=== PATIENT | male | born 1955 | race Native Hawaiian/Other Pacific Islander ===

== ENCOUNTER 2021-02-09 11:31 | Inpatient (IN) | payer MEDICARE ==
[2021-02-09] VITALS (9 sets, daily range): BP systolic 116–150; BP diastolic 69–111
[~2021-02-09 11:31] MED LIST: CARVEDILOL6.25 MG PO; CLONAZEP ODT0.5 MG PO; LISINOPRIL20 M1 PO; SERTRALINE25 MG PO
[2021-02-09 12:29] LABS: HEMATOCRIT 50.3 % (39.0-50.0); HEMOGLOBIN 16.8 g/dl (14.0-18.0); IMMATURE GRANULOCYTES 0.1 % (0.0-5.0); MEAN CELL VOLUME 95.3 fL CALC (80.0-100.0); MEAN CORPUSCULAR HGB 31.8 pG CALC (26.0-32.0); MEAN CORPUSCULAR HGB CONC 33.4 g/dL CAL (32.0-36.0); NEUT# 4.48 thou/uL (1.82-7.42); RED BLOOD COUNT 5.28 mill/uL (4.70-6.10); RED CELL DISTRI WIDTH 13.4 % (11.5-15.5)
[2021-02-09 12:39] LABS: ALBUMIN 4.8 g/dL (3.2-5.0); ALKALINE PHOSPHATASE 136 u/l (38-126); ANION GAP 28 (6-22 (CALC)); BILIRUBIN, TOTAL 1.5 mg/dL (0.0-1.4); BUN 15 mg/dL (8-23); BUN/CREATININE RATIO 16 (12-20 (CALC)); CARBON DIOXIDE 16 mmol/l (22-30); CHLORIDE 96 mmol/l (95-108); CREATININE 0.9 mg/dL (0.7-1.3); GFR > 60 ML/MIN (>=60 (CALC)); GFR FOR AFR.AMER. > 60 ML/MIN (>=60 (CALC)); POTASSIUM 4.6 mmol/l (3.5-5.1); SGOT/AST 108 u/l (19-48); SODIUM 135 mmol/l (137-146); TOTAL PROTEIN 8.4 g/dL (6.3-8.2)
[2021-02-09] MEDS ORDERED: CLONAZEPAM1 MG PO (13:04)
[2021-02-09] MEDS ORDERED: SEROQUEL25 MG PO (13:04)
[2021-02-09 15:54] LABS: URINE BLOOD DIPSTICK NEGATIVE (NEGATIVE); URINE GLUCOSE - DIPSTICK NEGATIVE (NEGATIVE); URINE KETONE 40 mg/dL (NEGATIVE); URINE LEUK ESTERASE NEGATIVE (NEGATIVE); URINE PH 5.5 (4.5-8.0); URINE PROTEIN - DIPSTICK 30 mg/dL (NEG-TRACE); URINE SPECIFIC GRAVITY >=1.030
[2021-02-09 16:01] LABS: URINE BILIRUBIN - DIPSTICK SMALL (NEGATIVE); URINE COLOR DK. YELLOW; URINE NITRITE - DIPSTICK NEGATIVE (Negative)
[2021-02-09 16:02] LABS: URINE RBC 0-2 RBC/hpf (0-5); URINE WBC 0-2 WBC/hpf (0-5)
[2021-02-10] VITALS (21 sets, daily range): BP systolic 100–156; BP diastolic 63–104
[2021-02-10 06:37] LABS: HEMATOCRIT 45.1 % (39.0-50.0); MEAN CELL VOLUME 96.8 fL CALC (80.0-100.0); MEAN CORPUSCULAR HGB 31.8 pG CALC (26.0-32.0); MEAN CORPUSCULAR HGB CONC 32.8 g/dL CAL (32.0-36.0); RED BLOOD COUNT 4.66 mill/uL (4.70-6.10); RED CELL DISTRI WIDTH 13.8 % (11.5-15.5)
[2021-02-10 06:48] LABS: HEMOGLOBIN 14.8 g/dl (14.0-18.0)
[2021-02-10 07:01] LABS: ALKALINE PHOSPHATASE 105 u/l (38-126); ANION GAP 14 (6-22 (CALC)); BILIRUBIN, TOTAL 1.4 mg/dL (0.0-1.4); BUN 23 mg/dL (8-23); BUN/CREATININE RATIO 26 (12-20 (CALC)); CALCULATED LDLCHOLESTEROL 94 mg/dL (62-129 (CALC)); CARBON DIOXIDE 29 mmol/l (22-30); CHLORIDE 95 mmol/l (95-108); CHOLESTEROL HDL RATIO 2.2 (<4.4 (CALC)); CREATININE 0.9 mg/dL (0.7-1.3); GFR > 60 ML/MIN (>=60 (CALC)); GFR FOR AFR.AMER. > 60 ML/MIN (>=60 (CALC)); HDL CHOLESTEROL 91 mg/dL (>=40); MAGNESIUM 2.4 mg/dL (1.6-2.3); POTASSIUM 4.3 mmol/l (3.5-5.1); SGOT/AST 61 u/l (19-48); SODIUM 134 mmol/l (137-146); TOTAL CHOLESTEROL 203 mg/dl (0-199); TOTAL PROTEIN 6.8 g/dL (6.3-8.2); TOTAL TRIGLYCERIDES 92 mg/dl (30-149); VLDL CHOLESTROL 18 mg/dl (4-45 (CALC))
[2021-02-11] VITALS (18 sets, daily range): BP systolic 92–158; BP diastolic 54–90
[2021-02-11 05:54] LABS: ALBUMIN 3.7 g/dL (3.2-5.0); ALKALINE PHOSPHATASE 95 u/l (38-126); ANION GAP 12 (6-22 (CALC)); BUN 23 mg/dL (8-23); BUN/CREATININE RATIO 29 (12-20 (CALC)); CARBON DIOXIDE 31 mmol/l (22-30); CHLORIDE 96 mmol/l (95-108); CREATININE 0.8 mg/dL (0.7-1.3); DIGOXIN 0.9 ng/mL (0.8-2.0); GFR > 60 ML/MIN (>=60 (CALC)); GFR FOR AFR.AMER. > 60 ML/MIN (>=60 (CALC)); POTASSIUM 4.1 mmol/l (3.5-5.1); SGOT/AST 45 u/l (19-48); SODIUM 135 mmol/l (137-146); TOTAL PROTEIN 6.7 g/dL (6.3-8.2)
[2021-02-12] VITALS (9 sets, daily range): BP systolic 93–148; BP diastolic 70–95
[2021-02-12 06:15] LABS: ALBUMIN 3.3 g/dL (3.2-5.0); ALKALINE PHOSPHATASE 78 u/l (38-126); ANION GAP 11 (6-22 (CALC)); BUN 19 mg/dL (8-23); BUN/CREATININE RATIO 26 (12-20 (CALC)); CARBON DIOXIDE 28 mmol/l (22-30); CHLORIDE 98 mmol/l (95-108); CREATININE 0.7 mg/dL (0.7-1.3); GFR > 60 ML/MIN (>=60 (CALC)); GFR FOR AFR.AMER. > 60 ML/MIN (>=60 (CALC)); POTASSIUM 3.8 mmol/l (3.5-5.1); SGOT/AST 49 u/l (19-48); SODIUM 133 mmol/l (137-146); TOTAL PROTEIN 6.1 g/dL (6.3-8.2)
[2021-02-12 06:39] LABS: DIGOXIN 0.5 ng/mL (0.8-2.0)
[2021-02-13] VITALS: BP 107/73
[2021-02-13 05:06] VITALS: BP 146/86
[2021-02-13 07:00] VITALS: BP 114/74
[2021-02-13] MEDS ORDERED: COREG12.5 MG PO (10:33)
[2021-02-13] MEDS ORDERED: CORDARONE/200 MG/TAB PO (10:33)
[2021-02-13] MEDS ORDERED: ELIQUIS5 MG PO (10:33)
[2021-02-13 13:00] VITALS: BP 126/87
== END 2021-02-13 14:20 | disposition home or self-care (01) | DRG 310 ==
LOC: ED 11:31 → ED-I 16:08 → ED 16:26 → ICU 16:27
PROVIDERS: Family Medicine; Nurse Practitioner Family; ADMIT Internal Medicine; ATTEND Internal Medicine
DX: I48.92 Unspecified atrial flutter (principal); I10 Essential (primary) hypertension; F41.9 Anxiety disorder, unspecified; G25.0 Essential tremor; R79.89 Other specified abnormal findings of blood chemistry; R94.6 Abnormal results of thyroid function studies; Z63.8 Other specified problems related to primary support group; Z20.822 Contact with and (suspected) exposure to COVID-19
CPT/HCPCS: J0282; J1160; J1650; J2060; J3475; Q9967

== ENCOUNTER 2022-07-27 05:23 | Emergency (ER) | payer MEDICARE ==
[2022-07-27] VITALS (9 sets, daily range): BP systolic 106–139; BP diastolic 74–90
[~2022-07-27] VITALS: Ht 185.4 cm; Wt 114.0 kg
[~2022-07-27 05:23] MED LIST changes: +CLONAZEPAM1 MG PO; +CORDARONE/200 MG/TAB PO; +COREG12.5 MG PO; +ELIQUIS5 MG PO; +SEROQUEL25 MG PO
[2022-07-27] MEDS ORDERED: CARVEDILOL6.25 MG PO (05:46)
[2022-07-27] MEDS ORDERED: LISINOPRIL10 MG PO (05:47)
[2022-07-27 06:01] LABS: HEMATOCRIT 46.3 % (39.0-50.0); HEMOGLOBIN 15.2 g/dl (14.0-18.0); IMMATURE GRANULOCYTES 0.2 % (0.0-5.0); MEAN CELL VOLUME 95.9 fL CALC (80.0-100.0); MEAN CORPUSCULAR HGB 31.5 pG CALC (26.0-32.0); MEAN CORPUSCULAR HGB CONC 32.8 g/dL CAL (32.0-36.0); NEUT# 5.51 thou/uL (1.82-7.42); RED BLOOD COUNT 4.83 mill/uL (4.70-6.10)
[2022-07-27 06:12] LABS: ALBUMIN 4.4 g/dL (3.2-5.0); ANION GAP 16 (6-22 (CALC)); BUN 9 mg/dL (8-23); BUN/CREATININE RATIO 12 (12-20 (CALC)); CARBON DIOXIDE 25 mmol/l (22-30); CHLORIDE 104 mmol/l (95-108); CREATININE 0.8 mg/dL (0.7-1.3); GFR FOR AFR.AMER. > 60 ML/MIN (>=60 (CALC)); GFR OTHER RACES > 60 ML/MIN (>=60 (CALC)); POTASSIUM 4.3 mmol/l (3.5-5.1); SGOT/AST 31 u/l (19-48); SODIUM 141 mmol/l (137-146); TOTAL PROTEIN 7.8 g/dL (6.3-8.2)
[2022-07-27 06:13] LABS: ALKALINE PHOSPHATASE 116 u/l (38-126); BILIRUBIN, TOTAL 0.4 mg/dL (0.0-1.4)
[2022-07-27 06:42] LABS: URINE BILIRUBIN - DIPSTICK NEGATIVE (NEGATIVE); URINE BLOOD DIPSTICK NEGATIVE (NEGATIVE); URINE COLOR YELLOW; URINE GLUCOSE - DIPSTICK NEGATIVE (NEGATIVE); URINE KETONE TRACE mg/dL (NEGATIVE); URINE LEUK ESTERASE NEGATIVE (NEGATIVE); URINE PROTEIN - DIPSTICK NEGATIVE (NEG-TRACE); URINE SPECIFIC GRAVITY >=1.030; URINE UROBILINOGEN - DIPSTICK 0.2 E.U./dL (0.2)
[2022-07-27 06:45] LABS: URINE NITRITE - DIPSTICK NEGATIVE (Negative)
== END 2022-07-27 07:03 | disposition home or self-care (01) ==
LOC: ED 05:23
PROVIDERS: Emergency Medicine
DX: F19.239 Other psychoactive substance dependence with withdrawal, unspecified (principal); F41.9 Anxiety disorder, unspecified; I48.92 Unspecified atrial flutter; I10 Essential (primary) hypertension; I48.91 Unspecified atrial fibrillation; F32.A Depression, unspecified; T42.4X6A Underdosing of benzodiazepines, initial encounter; Z91.128 Patient's intentional underdosing of medication regimen for other reason

== ENCOUNTER 2022-09-17 16:46 | Emergency (ER) | payer MEDICARE ==
[2022-09-17] VITALS (8 sets, daily range): BP systolic 85–121; BP diastolic 61–95
[~2022-09-17] VITALS: Ht 185.4 cm; Wt 106.8 kg
[~2022-09-17 16:46] MED LIST changes: +LISINOPRIL10 MG PO
[2022-09-17 17:30] LABS: GFR FOR AFR.AMER. > 60 ML/MIN (>=60 (CALC)); GFR OTHER RACES > 60 ML/MIN (>=60 (CALC))
[2022-09-17 17:37] LABS: ALBUMIN 4.2 g/dL (3.2-5.0); ANION GAP 13 (6-22 (CALC)); BUN 10 mg/dL (8-23); BUN/CREATININE RATIO 11 (12-20 (CALC)); CARBON DIOXIDE 25 mmol/l (22-30); CHLORIDE 109 mmol/l (95-108); CREATININE 0.9 mg/dL (0.7-1.3); GFR FOR AFR.AMER. > 60 ML/MIN (>=60 (CALC)); GFR OTHER RACES > 60 ML/MIN (>=60 (CALC)); HEMOGLOBIN 14.8 g/dl (14.0-18.0); IMMATURE GRANULOCYTES 0.1 % (0.0-5.0); LIPASE 55 u/l (23-300); MEAN CELL VOLUME 97.6 fL CALC (80.0-100.0); MEAN CORPUSCULAR HGB 32.1 pG CALC (26.0-32.0); MEAN CORPUSCULAR HGB CONC 32.9 g/dL CAL (32.0-36.0); NEUT# 4.07 thou/uL (1.82-7.42); RED BLOOD COUNT 4.61 mill/uL (4.70-6.10); SODIUM 143 mmol/l (137-146); TOTAL PROTEIN 7.7 g/dL (6.3-8.2)
[2022-09-17 17:41] LABS: ALKALINE PHOSPHATASE 233 u/l (38-126); BILIRUBIN, TOTAL 0.7 mg/dL (0.0-1.4); SGOT/AST 68 u/l (19-48)
[2022-09-17] MEDS ORDERED: TRAMADOL HCL50 MG PO (19:21)
== END 2022-09-17 20:17 | disposition home or self-care (01) ==
LOC: ED 16:46
PROVIDERS: Family Medicine
DX: S22.41XA Multiple fractures of ribs, right side, initial encounter for closed fracture (principal); I48.92 Unspecified atrial flutter; R42 Dizziness and giddiness; I10 Essential (primary) hypertension; I48.91 Unspecified atrial fibrillation; F41.9 Anxiety disorder, unspecified; F32.A Depression, unspecified; V48.4XXA Person boarding or alighting a car injured in noncollision transport accident, initial encounter; Y92.009 Unspecified place in unspecified non-institutional (private) residence as the place of occurrence of the external cause
CPT/HCPCS: Q9967

== ENCOUNTER 2022-10-31 10:59 | Emergency (ER) | payer OTHER, MEDICARE ==
[~2022-10-31] VITALS: Ht 185.4 cm; Wt 105.0 kg
[2022-10-31] VITALS (35 sets, daily range): BP systolic 109–153; BP diastolic 64–115
[~2022-10-31 10:59] MED LIST changes: +TRAMADOL HCL50 MG PO
[2022-10-31] MEDS ORDERED: ANTIDEPRESSENT (11:24)
[2022-10-31] MEDS ORDERED: LISINOPRIL2.5 MG PO (11:24)
[2022-10-31 11:38] LABS: BASO% 0.4 % (0-3); EOS% 0.2 % (0-8); HEMATOCRIT 42.3 % (39.0-50.0); HEMOGLOBIN 14.6 g/dl (14.0-18.0); IMMATURE GRANULOCYTES 0.1 % (0.0-5.0); LYMPH% 31.1 % (15-41); MEAN CORPUSCULAR HGB 33.5 pG CALC (26.0-32.0); MEAN CORPUSCULAR HGB CONC 34.5 g/dL CAL (32.0-36.0); MONO% 9.8 % (2-13); NEUT# 6.83 thou/uL (1.82-7.42); NEUT% 58.4 % (42-76); RED BLOOD COUNT 4.36 mill/uL (4.70-6.10); RED CELL DISTRI WIDTH 13.3 % (11.5-15.5)
[2022-10-31 11:53] LABS: ALBUMIN 4.1 g/dL (3.2-5.0); ALKALINE PHOSPHATASE 146 u/l (38-126); ANION GAP 16 (6-22 (CALC)); BILIRUBIN, TOTAL 0.7 mg/dL (0.0-1.4); BUN 9 mg/dL (8-23); BUN/CREATININE RATIO 10 (12-20 (CALC)); CARBON DIOXIDE 22 mmol/l (22-30); CHLORIDE 104 mmol/l (95-108); CREATININE 0.9 mg/dL (0.7-1.3); ETHYL ALCOHOL 227 mg/dl (0-30); GFR FOR AFR.AMER. > 60 ML/MIN (>=60 (CALC)); GFR OTHER RACES > 60 ML/MIN (>=60 (CALC)); POTASSIUM 4.2 mmol/l (3.5-5.1); SGOT/AST 80 u/l (19-48); SODIUM 138 mmol/l (137-146); TOTAL PROTEIN 7.5 g/dL (6.3-8.2)
== END 2022-10-31 20:26 | disposition left against medical advice (07) | DRG 605 ==
LOC: ED 10:59
PROVIDERS: Family Medicine
DX: S00.83XA Contusion of other part of head, initial encounter (principal); I48.92 Unspecified atrial flutter; V43.52XA Car driver injured in collision with other type car in traffic accident, initial encounter; Y92.481 Parking lot as the place of occurrence of the external cause; F10.129 Alcohol abuse with intoxication, unspecified; Y90.7 Blood alcohol level of 200-239 mg/100 ml; Z53.29 Procedure and treatment not carried out because of patient's decision for other reasons; R00.0 Tachycardia, unspecified
CPT/HCPCS: Q9967

== ENCOUNTER 2022-11-09 11:11 | Emergency (ER) | payer MEDICARE ==
[~2022-11-09] VITALS: Ht 185.4 cm; Wt 120.0 kg
[2022-11-09] VITALS (21 sets, daily range): BP systolic 122–153; BP diastolic 66–105
[~2022-11-09 11:11] MED LIST changes: +ANTIDEPRESSENT; +LISINOPRIL2.5 MG PO
[2022-11-09 12:15] LABS: BASO% 0.8 % (0-3); EOS% 0.5 % (0-8); HEMATOCRIT 44.5 % (39.0-50.0); HEMOGLOBIN 15.2 g/dl (14.0-18.0); IMMATURE GRANULOCYTES 0.2 % (0.0-5.0); LYMPH% 25.1 % (15-41); MEAN CELL VOLUME 98.9 fL CALC (80.0-100.0); MEAN CORPUSCULAR HGB 33.8 pG CALC (26.0-32.0); MEAN CORPUSCULAR HGB CONC 34.2 g/dL CAL (32.0-36.0); MONO% 9.3 % (2-13); NEUT# 5.91 thou/uL (1.82-7.42); NEUT% 64.1 % (42-76); RED BLOOD COUNT 4.5 mill/uL (4.70-6.10); RED CELL DISTRI WIDTH 13.3 % (11.5-15.5)
[2022-11-09 12:34] LABS: ALBUMIN 4.5 g/dL (3.2-5.0); ALKALINE PHOSPHATASE 150 u/l (38-126); ANION GAP 16 (6-22 (CALC)); BILIRUBIN, TOTAL 0.9 mg/dL (0.0-1.4); BUN 13 mg/dL (8-23); BUN/CREATININE RATIO 17 (12-20 (CALC)); CARBON DIOXIDE 25 mmol/l (22-30); CHLORIDE 105 mmol/l (95-108); CREATININE 0.8 mg/dL (0.7-1.3); GFR FOR AFR.AMER. > 60 ML/MIN (>=60 (CALC)); GFR OTHER RACES > 60 ML/MIN (>=60 (CALC)); POTASSIUM 4.4 mmol/l (3.5-5.1); SGOT/AST 111 u/l (19-48); SODIUM 142 mmol/l (137-146); TOTAL PROTEIN 8.2 g/dL (6.3-8.2)
== END 2022-11-09 13:40 | disposition left against medical advice (07) ==
LOC: ED 11:11
PROVIDERS: Family Medicine
DX: I48.92 Unspecified atrial flutter (principal); I10 Essential (primary) hypertension; I48.91 Unspecified atrial fibrillation; F32.A Depression, unspecified; F41.9 Anxiety disorder, unspecified; Z53.29 Procedure and treatment not carried out because of patient's decision for other reasons; Z20.822 Contact with and (suspected) exposure to COVID-19

== ENCOUNTER 2023-02-18 15:32 | Observation (INO) | payer MEDICARE ==
[~2023-02-18] VITALS: Ht 188 cm; Wt 113.2 kg
[~2023-02-18 15:32] MED LIST changes: +AMIODARONE HYD200 M1 PO; +CLONAZEPAM2 MG PO; +PROTONIX40 M2 PO; +QUETIAPINE FUMA50 MG PO; +SERTRALINE50 MG PO; +SILDENAFIL50 M1; +XARELTO10 MG PO; +XYZAL ALLERGY 245 MG
[2023-02-18 15:45] VITALS: BP 131/81
[2023-02-18 16:00] VITALS: BP 126/82
[2023-02-18 16:15] VITALS: BP 135/88
[2023-02-18 16:15] LABS: EOS% 1.3 % (0-8); IMMATURE GRANULOCYTES 0.2 % (0.0-5.0); LYMPH% 25.3 % (15-41); MEAN CORPUSCULAR HGB CONC 30.8 g/dL CAL (32.0-36.0); MONO% 9.6 % (2-13); NEUT# 3.92 thou/uL (1.82-7.42); NEUT% 62.6 % (42-76); RED BLOOD COUNT 4.86 mill/uL (4.70-6.10); RED CELL DISTRI WIDTH 13.5 % (11.5-15.5)
[2023-02-18 16:21] LABS: HEMATOCRIT 44.2 % (39.0-50.0); HEMOGLOBIN 13.6 g/dl (14.0-18.0); MEAN CELL VOLUME 90.9 fL CALC (80.0-100.0)
[2023-02-18 16:34] LABS: ANION GAP 16 (6-22 (CALC)); BUN 11 mg/dL (8-23); BUN/CREATININE RATIO 14 (12-20 (CALC)); CARBON DIOXIDE 23 mmol/l (22-30); CHLORIDE 108 mmol/l (95-108); CREATININE 0.8 mg/dL (0.7-1.3); GFR FOR AFR.AMER. > 60 ML/MIN (>=60 (CALC)); GFR OTHER RACES > 60 ML/MIN (>=60 (CALC)); POTASSIUM 4.2 mmol/l (3.5-5.1); SODIUM 142 mmol/l (137-146)
[2023-02-18 16:36] LABS: BILIRUBIN, TOTAL 0.3 mg/dL (0.2-1.3); TOTAL PROTEIN 7.1 g/dL (6.3-8.2)
[2023-02-18 16:37] LABS: ALBUMIN 3.6 g/dL (3.2-5.0); ALKALINE PHOSPHATASE 161 u/l (38-126); SGOT/AST 46 u/l (19-48)
[2023-02-18 17:57] LABS: URINE BILIRUBIN - DIPSTICK NEGATIVE (NEGATIVE); URINE BLOOD DIPSTICK NEGATIVE (NEGATIVE); URINE COLOR YELLOW; URINE GLUCOSE - DIPSTICK NEGATIVE (NEGATIVE); URINE KETONE 15 mg/dL (NEGATIVE); URINE LEUK ESTERASE NEGATIVE (NEGATIVE); URINE PH 5.5 (4.5-8.0); URINE PROTEIN - DIPSTICK NEGATIVE (NEG-TRACE); URINE SPECIFIC GRAVITY >=1.030; URINE UROBILINOGEN - DIPSTICK 0.2 E.U./dL (0.2)
[2023-02-18 17:58] LABS: URINE NITRITE - DIPSTICK NEGATIVE (Negative)
[2023-02-19] VITALS (14 sets, daily range): BP systolic 141–155; BP diastolic 93–105
[2023-02-19 05:37] LABS: BASO% 0.9 % (0-3); EOS% 1.4 % (0-8); HEMATOCRIT 41.3 % (39.0-50.0); HEMOGLOBIN 12.5 g/dl (14.0-18.0); IMMATURE GRANULOCYTES 0.2 % (0.0-5.0); LYMPH% 30.1 % (15-41); MEAN CELL VOLUME 91.8 fL CALC (80.0-100.0); MEAN CORPUSCULAR HGB 27.8 pG CALC (26.0-32.0); MEAN CORPUSCULAR HGB CONC 30.3 g/dL CAL (32.0-36.0); MONO% 13.4 % (2-13); NEUT# 3.52 thou/uL (1.82-7.42); RED BLOOD COUNT 4.5 mill/uL (4.70-6.10); RED CELL DISTRI WIDTH 13.6 % (11.5-15.5)
[2023-02-19 05:52] LABS: ALBUMIN 3.1 g/dL (3.2-5.0); ALKALINE PHOSPHATASE 135 u/l (38-126); ANION GAP 13 (6-22 (CALC)); BUN 11 mg/dL (8-23); BUN/CREATININE RATIO 17 (12-20 (CALC)); CARBON DIOXIDE 21 mmol/l (22-30); CHLORIDE 109 mmol/l (95-108); CREATININE 0.7 mg/dL (0.7-1.3); GFR FOR AFR.AMER. > 60 ML/MIN (>=60 (CALC)); GFR OTHER RACES > 60 ML/MIN (>=60 (CALC)); MAGNESIUM 1.6 mg/dL (1.6-2.3); POTASSIUM 4.2 mmol/l (3.5-5.1); SGOT/AST 32 u/l (19-48); SODIUM 140 mmol/l (137-146); TOTAL PROTEIN 6.2 g/dL (6.3-8.2)
[2023-02-19 05:53] LABS: BILIRUBIN, TOTAL 0.5 mg/dL (0.2-1.3)
[2023-02-20 03:18] VITALS: BP 136/100; BP 138/100
[2023-02-20 06:39] VITALS: BP 138/96
[2023-02-20 09:01] VITALS: BP 142/97
[2023-02-20 09:05] VITALS: BP 142/97
[2023-02-20 10:11] LABS: HEMATOCRIT 41.3 % (39.0-50.0); HEMOGLOBIN 12.7 g/dl (14.0-18.0); MEAN CORPUSCULAR HGB 27.7 pG CALC (26.0-32.0); MEAN CORPUSCULAR HGB CONC 30.8 g/dL CAL (32.0-36.0); RED BLOOD COUNT 4.59 mill/uL (4.70-6.10); RED CELL DISTRI WIDTH 13.6 % (11.5-15.5)
[2023-02-20 10:27] LABS: ALBUMIN 3.1 g/dL (3.2-5.0); ALKALINE PHOSPHATASE 132 u/l (38-126); ANION GAP 10 (6-22 (CALC)); BILIRUBIN, TOTAL 0.5 mg/dL (0.2-1.3); BUN 10 mg/dL (8-23); BUN/CREATININE RATIO 15 (12-20 (CALC)); CARBON DIOXIDE 25 mmol/l (22-30); CHLORIDE 106 mmol/l (95-108); CREATININE 0.7 mg/dL (0.7-1.3); GFR FOR AFR.AMER. > 60 ML/MIN (>=60 (CALC)); GFR OTHER RACES > 60 ML/MIN (>=60 (CALC)); MAGNESIUM 1.7 mg/dL (1.6-2.3); POTASSIUM 3.5 mmol/l (3.5-5.1); SGOT/AST 28 u/l (19-48); SODIUM 138 mmol/l (137-146); TOTAL PROTEIN 6.4 g/dL (6.3-8.2)
== END 2023-02-20 12:56 ==
LOC: ED 15:32 → ED-I 16:11 → ED 18:51 → MS2 18:52
PROVIDERS: Family Medicine; Nurse Practitioner Family; ADMIT Internal Medicine; ATTEND Internal Medicine
DX: R55 Syncope and collapse (principal); R42 Dizziness and giddiness; E87.20 Acidosis, unspecified; I10 Essential (primary) hypertension; I48.92 Unspecified atrial flutter; I48.0 Paroxysmal atrial fibrillation; F41.9 Anxiety disorder, unspecified; F32.A Depression, unspecified; S32.010A Wedge compression fracture of first lumbar vertebra, initial encounter for closed fracture; S80.211A Abrasion, right knee, initial encounter; S00.11XA Contusion of right eyelid and periocular area, initial encounter; W19.XXXA Unspecified fall, initial encounter; Z73.3 Stress, not elsewhere classified; Z91.81 History of falling; Z79.899 Other long term (current) drug therapy; Z87.19 Personal history of other diseases of the digestive system; Z20.822 Contact with and (suspected) exposure to COVID-19

== ENCOUNTER 2023-06-11 11:08 | Inpatient (IN) | payer MEDICARE ==
[~2023-06-11] VITALS: Ht 188 cm; Wt 94.5 kg
[2023-06-11] VITALS (33 sets, daily range): BP systolic 75–121; BP diastolic 52–87
[~2023-06-11 11:08] MED LIST changes: +ACETAMINOPHEN325 MG PO; +CARTIA XT180 MG; +CARVEDILOL12.5 MG PO; +FLEXERIL5 M1 PO; +KLONOPIN1 MG PO; +MONTELUKAST SOD10 MG PO; +MUPIROCIN2 % EX; +PANTOPRAZOLE SO40 M1 PO; +SLOW-MAG PO
--- NOTE | 2023-06-11 11:10 | NUR ---
Patient to ED 13 via EMS. From [facility], recently d/c from [facility], reports continued and progressive weakness over the past 2 weeks and diarrhea over the past 2-3 days.
[2023-06-11] MEDS ORDERED: DILT-XR120 MG PO (11:39)
--- NOTE | 2023-06-11 12:15 | NUR ---
Patient resting in bed with eyes closed. Arousable and offers no new complaints. Continuous monitoring in place.
--- NOTE | 2023-06-11 12:30 | NUR ---
Orders to hold IV Diltiazem for hypotension.
[2023-06-11 12:56] LABS: BASO% 0.4 % (0-3); IMMATURE GRANULOCYTES 0.1 % (0.0-5.0); LYMPH% 25.4 % (15-41); MEAN CELL VOLUME 89.6 fL CALC (80.0-100.0); MEAN CORPUSCULAR HGB 28.1 pG CALC (26.0-32.0); MEAN CORPUSCULAR HGB CONC 31.3 g/dL CAL (32.0-36.0); MONO% 9.2 % (2-13); NEUT# 5.15 thou/uL (1.82-7.42); NEUT% 64.9 % (42-76); RED BLOOD COUNT 5.41 mill/uL (4.70-6.10); RED CELL DISTRI WIDTH 15.3 % (11.5-15.5)
[2023-06-11 12:57] LABS: HEMATOCRIT 48.5 % (39.0-50.0); HEMOGLOBIN 15.2 g/dl (14.0-18.0)
[2023-06-11 13:03] LABS: ALBUMIN 3.6 g/dL (3.2-5.0); ALKALINE PHOSPHATASE 117 u/l (38-126); ANION GAP 14 (6-22 (CALC)); BUN 13 mg/dL (8-23); BUN/CREATININE RATIO 15 (12-20 (CALC)); CARBON DIOXIDE 24 mmol/l (22-30); CHLORIDE 102 mmol/l (95-108); CREATININE 0.8 mg/dL (0.7-1.3); GFR FOR AFR.AMER. > 60 ML/MIN (>=60 (CALC)); GFR OTHER RACES > 60 ML/MIN (>=60 (CALC)); POTASSIUM 4.1 mmol/l (3.5-5.1); SODIUM 137 mmol/l (137-146); TOTAL PROTEIN 7.3 g/dL (6.3-8.2)
[2023-06-11 13:05] LABS: BILIRUBIN, TOTAL 0.4 mg/dL (0.2-1.3); SGOT/AST 73 u/l (19-48)
[2023-06-11 13:10] LABS: PROTHROMBIN TIME 10.7 SECONDS (9.0-12.5)
--- NOTE | 2023-06-11 13:10 | NUR ---
Lab at bedside for cultures. New 22G placed for second access. Patient to give urine sample at this time.
--- NOTE | 2023-06-11 14:27 | NUR ---
MD re-evaluation at bedside and POC discussion. Plan to start ABX and potential admission.
--- NOTE | 2023-06-11 17:31 | NUR ---
Report called to [facility]. Patient to ICU 2 in stable condition. All belongings and medications sent with patient. Handoff of care at the time of this note.
--- NOTE | 2023-06-11 18:21 | NUR ---
Patient arrived to the unit via stretcher accompained by ER staff at 1700. Patient is AO x 3. Denies any pain at this time. Patient is shaky, but denies being cold. States that he was discharged from [facility] rehab on 06/09 after 1.5 wks. States he felt dizzy/weak and had diarrhea x 2 - 3 days. Patient unable to answer if he was picked up at home by EMS or at a hotel. Lungs coarse/diminished to ascultation. Peripheral pulses strong. Patient able to move all ext. States last moved bowels on 06/11. It was brown in color, large and loose. Per report received patient is continent of . Patient aflutter on the monitor with a rate of 81. Skin is intact save for b/l knee skin tears in stages of healing and generalized bruising. Patient has a 20 RW EMS site flushes well and a 22 RFA. Patient advised to call prior to getting out of bed, agreed. NAD noted. Bed in low position. Call light next to L hand. Will hand off report to oncoming nurse as scheduled.
--- NOTE | 2023-06-11 19:00 | NUR ---
REPORT RECIEVED FROM OFF GOING NURSE.
--- NOTE | 2023-06-11 20:00 | NUR ---
PATIENT NOTED LYING IN BED WITH HOB ELEVATED. NO ACUTE DISTRESS NOTED. PATIENT STATED " I ACTUALLY FEEL GOOD TODAY." HE DENIES ANY PAIN OR DISCOMFORT. ASSESSMENT COMPLETED HE IS ALERT AND ORIENTED X3. VSS. RHONCHI NOTED IN RLL. STRONG PEDAL AND RADIAL PULSES NOTED. SKIN INTACT. BOWEL SOUNDS ACTIVE IN ALL FOUR QAUDS. NO EDEMA NOTED. WILL CONTINUE TO MONITOR.
--- NOTE | 2023-06-11 22:00 | NUR ---
PATIENT LYING IN BED RESTING COMFORTABLY WITH NO ACUTE DISTRESS NOTED.
--- NOTE | 2023-06-11 22:00 | NUR ---
PATIENT SITTING UP IN BED WATCHING TV. NO ACUTE DISTRESS NOTED. WILL CONTINUE TO MONIOTOR. BED LOCKED, IN LOW POSITION, CALL LIGHT WITHIN REACH.
[2023-06-12] VITALS (22 sets, daily range): BP systolic 115–146; BP diastolic 73–107
--- NOTE | 2023-06-12 | NUR ---
PATIENT SLEEPING, SATURATIONS NOTED TO DROP IN 70S AND 80S. UPON ASSESSMENT OF PATIENT NO ACUTE DISTRESS NOTED. HE WAS PLACED ON O2 @ 2L NC
--- NOTE | 2023-06-12 06:00 | NUR ---
PATIENT LYING IN BED RESTING COMFORTABLY. NO ACUTE DISTRESS NOTED.
[2023-06-12 06:38] LABS: URINE BILIRUBIN - DIPSTICK Negative (NEGATIVE); URINE BLOOD DIPSTICK Negative (NEGATIVE); URINE COLOR Yellow; URINE GLUCOSE - DIPSTICK 100 mg/dL (NEGATIVE); URINE KETONE Negative (NEGATIVE); URINE LEUK ESTERASE Negative (NEGATIVE); URINE NITRITE - DIPSTICK Negative (Negative); URINE PROTEIN - DIPSTICK Negative (NEG-TRACE)
--- NOTE | 2023-06-12 07:00 | NUR ---
HAND OFF REPORT RECEIVED.
--- NOTE | 2023-06-12 07:56 | NUR ---
PATIENT SITTING UP IN BED EATING AM MEAL, LAB AT BEDSIDE, AWAKE AND ALERT, NO C/O PAIN OR DISCOMFORT, NO S/S OF DISTRESS NOTED, RESPIRATIONS EVEN AND UNLABORED ON ROOM AIR.
[2023-06-12 08:28] LABS: HEMATOCRIT 48.7 % (39.0-50.0); HEMOGLOBIN 15.4 g/dl (14.0-18.0); MEAN CORPUSCULAR HGB 28.8 pG CALC (26.0-32.0); MEAN CORPUSCULAR HGB CONC 31.6 g/dL CAL (32.0-36.0); RED BLOOD COUNT 5.35 mill/uL (4.70-6.10); RED CELL DISTRI WIDTH 15.3 % (11.5-15.5)
--- NOTE | 2023-06-12 08:46 | NUR ---
CASE MANAGEMENT AT BEDSIDE
[2023-06-12 09:00] LABS: ANION GAP 15 (6-22 (CALC)); BUN 6 mg/dL (8-23); BUN/CREATININE RATIO 10 (12-20 (CALC)); C-REACTIVE PROTEIN 4.6 mg/dL (0-0.9); CALCULATED LDLCHOLESTEROL 83 mg/dL (62-129 (CALC)); CARBON DIOXIDE 23 mmol/l (22-30); CHLORIDE 108 mmol/l (95-108); CHOLESTEROL HDL RATIO 2.9 (<4.4 (CALC)); CREATININE 0.6 mg/dL (0.7-1.3); GFR FOR AFR.AMER. > 60 ML/MIN (>=60 (CALC)); GFR OTHER RACES > 60 ML/MIN (>=60 (CALC)); HDL CHOLESTEROL 51 mg/dL (39.0-59.0); MAGNESIUM 1.9 mg/dL (1.6-2.3); POTASSIUM 4.1 mmol/l (3.5-5.1); SODIUM 141 mmol/l (137-146); TOTAL CHOLESTEROL 145 mg/dl (0-199); TOTAL TRIGLYCERIDES 58 mg/dl (0-149); VLDL CHOLESTROL 12 mg/dl (4-45 (CALC))
--- NOTE | 2023-06-12 10:55 | NUR ---
PATIENT TELEMETRY LEADS INCORRECTLY POSITIONED, PLACED LEADS APPROPRIATELY AND PATIENT IS NO LONGER IN A FLUTTER BUT SINUS TACH AT A RATE OF 101
--- NOTE | 2023-06-12 12:00 | NUR ---
PATIENT CONSUMED 100% OF LUNCH, AWAKE AND ALERT, RESPIRATIONS EVEN AND UNLABORED ON ROOM AIR, NO C/O PAIN OR DSICOMFORT, NO S/S OF DISTRESS NOTED.
--- NOTE | 2023-06-12 14:00 | NUR ---
PT TO BEDSIDE COMMODE, PATIENT ABLE TO AMBULATE INDEPENDENTLY, NO C/O PAIN OR DISCOMFORT, NO S/S OF DISTRESS NOTED, RESPIRATIONS EVEN AND UNLABORED ON ROOM AIR .
--- NOTE | 2023-06-12 16:04 | NUR ---
PATIENT TO BEDSIDE COMMODE, STATES NEEDS TO HAVE A BOWEL MOVEMENT, AWAKE AND ALERT, ABLE TO AMBULATE INDEPENDENTLY, NO C/O PAIN OR DISCOMFORT, NO S/S OF DISTRESS NOTED, RESPIRATIONS EVEN AND UNLABORED.
--- NOTE | 2023-06-12 18:10 | NUR ---
PATIENT RESTING QUIETLY IN BED, EVENING MEAL CONSUMED, PATIENT AWAKE AND ALERT, RESPIRATIONS EVEN AND UNLABORED ON ROOM AIR.
--- NOTE | 2023-06-12 19:00 | NUR ---
REPORT RECIEVED FROM OFF GOING NURSE.
--- NOTE | 2023-06-12 20:00 | NUR ---
PATIENT SITTING UP IN BED WITH NO ACUTE DISTRESS NOTED. ASSESSMENT COMPLETED (SEE INTERVENTIONS). HE IS ALERT AND ORIENTED X3. DENIES ANY PAIN OR DISCOMFORT. VSS. BED LOCKED, IN LOW POSITION, CALL LIGHT WITHIN REACH. WILL CONTINUE TO MONITOR.
--- NOTE | 2023-06-12 21:15 | NUR ---
REPORT RECIEVED FROM OFF GOING NURSE
--- NOTE | 2023-06-12 22:00 | NUR ---
PATIENT SITTING UP IN BED WATCHING TV WITH NO ACUTE DISTRESS NOTED. BED LOCKED, IN LOW POSITION, CALL LIGHT WITHIN REACH.
[2023-06-13] VITALS (26 sets, daily range): BP systolic 122–169; BP diastolic 85–118
--- NOTE | 2023-06-13 | NUR ---
PATIENT SLEEPING, NO ACUTE DISTRESS NOTED.
--- NOTE | 2023-06-13 07:00 | NUR ---
HAND OFF REPORT RECEIVED
--- NOTE | 2023-06-13 07:20 | NUR ---
REPORT GIVEN TO ONCOMING NURSE.
[2023-06-13 07:53] LABS: BASO% 0.1 % (0-3); HEMATOCRIT 52.2 % (39.0-50.0); HEMOGLOBIN 16.4 g/dl (14.0-18.0); IMMATURE GRANULOCYTES 0.2 % (0.0-5.0); LYMPH% 23.5 % (15-41); MEAN CELL VOLUME 92.7 fL CALC (80.0-100.0); MEAN CORPUSCULAR HGB 29.1 pG CALC (26.0-32.0); MEAN CORPUSCULAR HGB CONC 31.4 g/dL CAL (32.0-36.0); MONO% 7.5 % (2-13); NEUT# 7.49 thou/uL (1.82-7.42); NEUT% 68.7 % (42-76); RED BLOOD COUNT 5.63 mill/uL (4.70-6.10); RED CELL DISTRI WIDTH 15.6 % (11.5-15.5)
--- NOTE | 2023-06-13 08:00 | NUR ---
patient awake and alert, respirations even and unlabored on room air, no c/o pain or discomfort, no s/s of distress noted, monrning meal consumed.
[2023-06-13 08:54] LABS: ALBUMIN 3.5 g/dL (3.2-5.0); ALKALINE PHOSPHATASE 105 u/l (38-126); ANION GAP 12 (6-22 (CALC)); BILIRUBIN, TOTAL 0.4 mg/dL (0.2-1.3); BUN 12 mg/dL (8-23); BUN/CREATININE RATIO 18 (12-20 (CALC)); C-REACTIVE PROTEIN 1.9 mg/dL (0-0.9); CHLORIDE 105 mmol/l (95-108); CREATININE 0.7 mg/dL (0.7-1.3); GFR FOR AFR.AMER. > 60 ML/MIN (>=60 (CALC)); GFR OTHER RACES > 60 ML/MIN (>=60 (CALC)); POTASSIUM 3.7 mmol/l (3.5-5.1); SGOT/AST 43 u/l (19-48); SODIUM 141 mmol/l (137-146); TOTAL PROTEIN 7.3 g/dL (6.3-8.2)
[2023-06-13 09:03] LABS: CARBON DIOXIDE 28 mmol/l (22-30)
--- NOTE | 2023-06-13 10:00 | NUR ---
patient awake and alert, able to ambulate independently to the bedside commode, patient had large bowel movement, no c/o pain or discomfort, no s/s of distress noted, respirations even and unlabored on room air
--- NOTE | 2023-06-13 12:00 | NUR ---
PATIENT SITTING UP IN BED WATCHING TV, AFTERNOON MEAL COMPLETE
--- NOTE | 2023-06-13 14:00 | NUR ---
PATIETN TO BEDSIDE COMMODE, ABLE TO AMBULATE INDEPENDENTLY, NO C/O PAIN OR DISCOMFORT, NO S/S OF DISTRESS NOTED.
--- NOTE | 2023-06-13 16:04 | NUR ---
PATIENT AWAKE AND ALERT, SITTING UP IN BED, RESPIRATIONS EVEN AND UNLABORED ON ROOM AIR, NO C/O PAIN OR DISCOMFORT, NO S/S OF DISTRESS NOTED.
--- NOTE | 2023-06-13 19:00 | NUR ---
REPORT RECIEVED FROM OFF GOING NURSE.
--- NOTE | 2023-06-13 20:00 | NUR ---
PATIENT LYING IN BED WITH NO ACUTE DISTRESS NOTED. VSS. HE DENIES ANY PAIN OR DISCOMFORT. ASSESSMENT COMPLETED (SEE INTERVENTIONS). BED LOCKED, IN LOW POSITION. CALL LIGHT WITHIN REACH. WILL CONTINUE TO MONITOR.
--- NOTE | 2023-06-13 22:00 | NUR ---
PATIENT SLEEPING. BED LOCKED, IN LOW POSITION, CALL LIGHT WITHIN REACH.
[2023-06-14] VITALS (21 sets, daily range): BP systolic 125–170; BP diastolic 80–112
--- NOTE | 2023-06-14 | NUR ---
PATIENT SLEEEPING. WILL CONTINUE TO MONITOR.
--- NOTE | 2023-06-14 02:00 | NUR ---
PATIENT SLEEPING. WILL CONTINUE TO MOITOR.
--- NOTE | 2023-06-14 05:57 | NUR ---
PATIENT SLEEPING, NO ACUTE DISTRESS NOTED. WILL CONTINUE TO MONITOR.
--- NOTE | 2023-06-14 06:00 | NUR ---
PATIENT RESTING COMFORTABLY. NO SIGNS OR SYMPTOMS OF ACUTE DISTRESS NOTED.
[2023-06-14 06:20] LABS: MEAN CELL VOLUME 89.6 fL CALC (80.0-100.0); MEAN CORPUSCULAR HGB CONC 32.3 g/dL CAL (32.0-36.0); RED BLOOD COUNT 4.8 mill/uL (4.70-6.10); RED CELL DISTRI WIDTH 15.2 % (11.5-15.5)
[2023-06-14 06:24] LABS: HEMOGLOBIN 13.9 g/dl (14.0-18.0)
[2023-06-14 06:29] LABS: ALKALINE PHOSPHATASE 74 u/l (38-126); ANION GAP 11 (6-22 (CALC)); BUN 14 mg/dL (8-23); BUN/CREATININE RATIO 26 (12-20 (CALC)); CARBON DIOXIDE 24 mmol/l (22-30); CHLORIDE 106 mmol/l (95-108); CREATININE 0.5 mg/dL (0.7-1.3); GFR FOR AFR.AMER. > 60 ML/MIN (>=60 (CALC)); GFR OTHER RACES > 60 ML/MIN (>=60 (CALC)); MAGNESIUM 1.9 mg/dL (1.6-2.3); POTASSIUM 4.2 mmol/l (3.5-5.1); SGOT/AST 38 u/l (19-48); SODIUM 137 mmol/l (137-146); TOTAL PROTEIN 6.3 g/dL (6.3-8.2)
[2023-06-14 06:30] LABS: BILIRUBIN, TOTAL 0.6 mg/dL (0.2-1.3)
--- NOTE | 2023-06-14 07:20 | NUR ---
PATIENT IN HIGH FOWLERS SITTING IN BED WATCHING TV. UNLABORED RESPIRATIONS, ON ROOM AIR, NO C/O OF PAIN, ABLE TO AMBULATE WITH MINIMAL ASSISTANCE. NO NEEDS AT THIS TIME.
--- NOTE | 2023-06-14 10:30 | NUR ---
PHYSICAL THERAPY PUT PATIENT UP IN RECLINER. PATIENT IS AOX3 AND STATES HE IS COMFORTABLE AND WITHOUT DISTRESS. HE IS EATING HIS MEALS AND TAKING SCHEDULED PO MEDICATIONS WITH NO ISSUES. HE IS ABLE TO AMBULATE WITH MINIMAL ASSIST TO BSC AND CHAIR. HE HAS BEEN INSTRUCTED TO USE HIS CALL LIGHT WHEN HE WANTS TO GO BACK TO BED. CALL LIGHT WITHIN REACH.
--- NOTE | 2023-06-14 12:30 | NUR ---
PATIENT UP IN CHAIR WATCHING TV. DENIES PAIN OR SOB AND SHOWING NO SIGNS OF PAIN OR DISCOMFORT.
--- NOTE | 2023-06-14 14:15 | NUR ---
PATIENT UP IN RECLINER WATCHING TV. HE USES URINAL BUT WILL ASK FOR ASSISTANCE WITH SIMPLE TASKS HE CAN PERFORM HIMSELF FROM TIME TO TIME. CALL LIGHT WITHIN REACH.
--- NOTE | 2023-06-14 20:00 | NUR ---
PATIENT AMBULATED BACK TO BED WITH STANDBY ASSIST. NO ACUTE DISTRESS NOTED. ASSESSMENT COMPLETED (SEE INTERVENTIONS). VSS. HE IS A/O X3. LUNGS CLEAR, HE HAS A NON PRODUCTIVE DRY COUGH. LEFT HAND IV NOTED LEAKING. NEW IV PLACED IN LFA. BED LOCKED, IN LOW POSITION. CALL LIGHT WITHIN REACH.
--- NOTE | 2023-06-14 22:00 | NUR ---
PATIENT SLEEPING, CALL LIGHT WITHIN REACH. WILL CONTINUE TO MONITOR.
[2023-06-15] VITALS (16 sets, daily range): BP systolic 120–180; BP diastolic 78–115
--- NOTE | 2023-06-15 | NUR ---
PATIENT SLEEPING, CALL LIGHT WITHIN REACH. WILL CONTINUE TO MONITOR.
--- NOTE | 2023-06-15 02:00 | NUR ---
PATIENT SLEEPING. WILL CONTINUE TO MONITOR.
--- NOTE | 2023-06-15 04:00 | NUR ---
PATIENT SLEEPING. WILL CONTINUE TO MONITOR.
--- NOTE | 2023-06-15 06:00 | NUR ---
PATIENT SLEEPING, NO ACUTE DISTRESS NOTED.
--- NOTE | 2023-06-15 07:05 | NUR ---
REPORT GIVEN TO ONCOMING NURSE.
--- NOTE | 2023-06-15 08:00 | NUR ---
RCD REPORT FROM [facility]. PT IS COVID POSITIVE. PT IS A/OX3. PT AMBULATES A STANDBY ASSIST. PT CURRENTLY SITTING IN BEDSIDE CHAIR EATING BREAKFAST. PT STATES HES READY TO GO TO REHAB. PT LUNGS ARE SLIGHTLY DIMINHSED. DRY COUGH NOTED. SKIN IS INTACT. BOWEL SOUNDS ACTIVE. PT USES URINAL AND BSC. PT IV IS SL WITH ABX DUE Q12H. PT ON RA. PT DENIES ANY COMPLAINTS AT THIS TIME.
--- NOTE | 2023-06-15 10:00 | NUR ---
PT IS SITTING IN BEDSIDE CHAIR. DENIES ANY COMPLAINTS AT THIS TIME.
--- NOTE | 2023-06-15 12:00 | NUR ---
pt is in bedside chair. awaiting authorization for rehab. pt patiently waiting. denies any complaints at this time.
--- NOTE | 2023-06-15 14:00 | NUR ---
pt watching tv denies any complaints at this time
--- NOTE | 2023-06-15 16:00 | NUR ---
pt watching tv. using urinal. awaiting discharge to rehab. denies any complaints at this time.
--- NOTE | 2023-06-15 18:06 | NUR ---
pt finishing dinner. pt has no complaints
--- NOTE | 2023-06-15 19:00 | NUR ---
hand off report from siomara
--- NOTE | 2023-06-15 20:00 | NUR ---
PATIENT AWAKE AND ALERT, AMBULATED SELF FROM RECLINER CHAIR TO THE BED, PATIENT RE-SITUATED WITH ALL MONITORING EQUIPMENT AND ABT TREATMENT STARTED, DISCUSSED WHEN PO MEDICATION WOULD BE GIVEN TO THE PATIENT, AFTER LEAVING THE ROOM, PATIENT REMOVED CARDIAC MONITORING LEADS AND MOVED THEM TO IMPROPER LOCATION, PULLED PULSE OX MONITORING CORD OUT OF THE MONITOR AND REMOVED BLOOD PRESSURE CUFF, PATIENT THAN CALLED FOR ASSISTANCE TO PLACE THOSE THINGS BACK ON, PATIENT EDUCATED THAT HE NEEDED TO LEAVE MONITORING EQUIPMENT IN PLACE.
--- NOTE | 2023-06-15 22:00 | NUR ---
PATIENT RESTING QUIETLY IN BED WATCH TELEVISION, RESPIRATIONS EVEN AN DUNLABORED ON ROOM AIR, NO C/O PAIN OR DISCOMFORT, NO S/S OF IDSTRESS NOTED, PATIENT CONTINES TO RE-ADJUST MONITORING EQUIPMENT
[2023-06-16] VITALS (8 sets, daily range): BP systolic 114–155; BP diastolic 78–112
--- NOTE | 2023-06-16 | NUR ---
patient resting quietly with eyes closed, respirations even and unlabored on room air, no c/o pain or discomfort, no s/s of distress noted.
--- NOTE | 2023-06-16 02:00 | NUR ---
patient resting quietly with lights off, respirations even and unlabored on room air, no c/o pain or discomfort, no s/s of distress noted.
--- NOTE | 2023-06-16 04:01 | NUR ---
patient resting quietly with eyes closed and lights out, respirations even an dunlabored on room air, no c/o pain or discomfort, no s/s of distress noted.
--- NOTE | 2023-06-16 06:00 | NUR ---
patient resting with eyes closed, respiraions even and unlabored on room air, no c/o pain or discomfort, no s/s of distress.
--- NOTE | 2023-06-16 08:00 | NUR ---
rcd report from [facility]. pt is a/ox3, pt ambulates as a standby assist. pt is covid positive. pt is on ra with diminished lung sounds. bowel sounds active. pt urinating in urinal. pt denies any chest pain. is nsr on the monitor. plan is to go to rehab today. pt discharge orders being placed now. pt denies any complaints at this time. pt in bedside chair. call light in reach.
--- NOTE | 2023-06-16 10:00 | NUR ---
pt in bedside chair watching tv. denies any complaints at thise time
--- NOTE | 2023-06-16 12:00 | NUR ---
pt eating lunch. pt states "when am i going to rehab? i am ready to leave" re-educated that we are waiting on insurance. pt denies any other complaints at this time.
--- NOTE | 2023-06-16 14:00 | NUR ---
pt patiently waiting to leave. watching tv sitting in bedside recliner. no complaints at this time.
--- NOTE | 2023-06-16 16:00 | NUR ---
PT GETTING DRESSED TO LEAVE FOR REHAB
== END 2023-06-16 16:50 | DRG 871 ==
LOC: ED 11:08 → ED-I 14:50 → ED 15:22 → ICU 15:23
PROVIDERS: Family Medicine; ADMIT Student in an Organized Health Care Education/Training Program; ATTEND Student in an Organized Health Care Education/Training Program
PROC: XW033E5 Introduction of Remdesivir Anti-infective into Peripheral Vein, Percutaneous Approach, New Technology Group 5 (ICD-10-PCS; principal; 2023-06-11)
DX: A41.89 Other specified sepsis (principal); J12.82 Pneumonia due to coronavirus disease 2019; U07.1 COVID-19; J96.91 Respiratory failure, unspecified with hypoxia; I48.19 Other persistent atrial fibrillation; I95.9 Hypotension, unspecified; E86.0 Dehydration; I10 Essential (primary) hypertension; I48.91 Unspecified atrial fibrillation; F41.9 Anxiety disorder, unspecified; F32.A Depression, unspecified; K59.00 Constipation, unspecified; G47.00 Insomnia, unspecified; G47.30 Sleep apnea, unspecified; Z59.01 Sheltered homelessness; Z91.81 History of falling
CPT/HCPCS: J1650